=== PATIENT | male | born 1995 | race Caucasian/White ===

== ENCOUNTER 2017-06-04 14:18 | Emergency (ER) | payer MEDICAID ==
[~2017-06-04] VITALS: Ht 180.3 cm; Wt 91.8 kg
[~2017-06-04 14:18] MED LIST: CEPH-572 PO; ONDA8TAB6 PO
[2017-06-04 14:21] VITALS: BP 141/91
[2017-06-04] MEDS ORDERED: IBUP-1984 PO (14:41)
[2017-06-04] MEDS ORDERED: AMOX-419 PO (14:41)
== END 2017-06-04 14:50 | disposition home or self-care (01) ==
LOC: ER 14:19
DX: J11.1 Influenza due to unidentified influenza virus with other respiratory manifestations (principal); J01.00 Acute maxillary sinusitis, unspecified; R51 Headache
CPT/HCPCS: 99283